=== PATIENT | male | born 1955 | race Caucasian/White ===

== ENCOUNTER 2017-04-07 18:53 | Emergency (ER) | payer OTHER ==
[~2017-04-07] VITALS: Ht 193 cm; Wt 127.0 kg
--- NOTE | ~2017-04-07 | EKG ---
[address] [place] [address] ELECTROCARDIOGRAM REPORT Name: HYACINTHERIC Room #: DEP KEL Wilkerson#: [id number] Admission: 04/07/17 Attend Phys: Discharge: 04/07/17 Date of : 57 Report #: [id number] THIS REPORT FOR: //name// [facility] ED Test Date: 2017-04-07 Test Time: 19:14:35 Pat Name: ERIC CLAROS Department: Room: Gender: Lock Tender: CRISTIANNELSON : 1955 Requested By: Yoel Dodson Order Number: [id number] MD: Mumtaz Pinon Measurements Intervals [place] Rate: 78 P: 17 AR: 174 QRS: -17 QRSD: 94 T: -11 QT: 399 QTc: 455 Interpretive Statements Sinus arrhythmia Borderline left axis deviation Nonspecific T wave abnormality No previous ECG available for comparison Electronically Signed On 04-08-2017 8:40:52 [employer] by Mumtaz Pinon [email or web address] <ELECTRONICALLY SIGNED> By: Mumtaz Pinon MD, [facility] 04/08/17 0840 1914 13 Mumtaz Pinon MD, FACC /EPI
[2017-04-07] MEDS ORDERED: OXYCONTIN10 M1 PO (19:08)
[2017-04-07] MEDS ORDERED: MS CONTIN60 MG PO (19:08)
[2017-04-07] MEDS ORDERED: ZANTAC 150MG T150 MG PO (19:09)
[2017-04-07] MEDS ORDERED: PRADAXA75 MG PO (19:10)
[2017-04-07] MEDS ORDERED: PAXIL10 MG PO (19:14)
[2017-04-07] MEDS ORDERED: CLARITIN10 MG PO (19:14)
[2017-04-07 19:21] LABS: HEMATOCRIT 45.9 % (42.0-52.0); HEMOGLOBIN 15.3 gm/dL (14.0-18.0); MCH 28.2 pg (26.0-34.0); MCHC 33.3 g/dL (28.0-37.0); MCV 84.6 fL (80.0-100.0); RBC 5.43 mil/uL (4.50-6.00); RDW 15.7 % (10.5-14.5); WBC 7.5 thou/uL (4.0-11.0)
[2017-04-07 19:35] LABS: ANION GAP 7 mmol/L (7-16); BUN 14 mg/dL (7-18); CALCIUM 9.8 mg/dL (8.5-10.1); CHLORIDE 104 mmol/L (98-107); CO2 29 mmol/L (21-32); CREATININE 1.1 mg/dL (0.7-1.3); GLUCOSE 105 mg/dL (74-106); POTASSIUM 3.9 mmol/L (3.5-5.1); SODIUM 140 mmol/L (136-145)
[2017-04-07 19:45] LABS: ALBUMIN 4.1 g/dL (3.4-5.0); SGOT 24 U/L (15-37); SGPT 39 U/L (30-65); TOTAL BILIRUBIN 0.4 mg/dL (<0.1-1.0); TOTAL PROTEIN 7.6 g/dL (6.4-8.2); TROPONIN-I < 0.04 ng/mL (<0.06)
== END 2017-04-07 21:59 | disposition home or self-care (01) ==
LOC: ER 18:53
PROVIDERS: Emergency Medicine
DX: R19.7 Diarrhea, unspecified (principal); R10.9 Unspecified abdominal pain; J45.909 Unspecified asthma, uncomplicated; M19.90 Unspecified osteoarthritis, unspecified site